=== PATIENT | male | born 1960 | race Caucasian/White ===

== ENCOUNTER 2024-02-10 08:55 | Day surgery (SDC) | payer OTHER, SELFPAY ==
[2024-02-10] VITALS (22 sets, daily range): BP systolic 105–145; BP diastolic 55–90; BMI 39.6
[2024-02-10] MEDS: NSS 885 IV (12:11)
--- NOTE | 2024-02-10 13:32 | ITS.CL.ANGIO ---
Bolter Helper - Angioplasty
Angioplasty
Procedure Report:
LEFT HEART CATHETERIZATION
Date of Procedure: February 10, 2024
Procedures performed:
1: Coronary angiography
2: Left ventricular hemodynamic assessment
3: Percutaneous coronary intervention of the left circumflex artery with placement of a 2.5 x 22 mm [place] drug-eluting stent postdilated with a 2.75 mm diameter noncompliant balloon at high pressure
Primary Care Physician: Dr. Dong Cuevas
Primary Transition Program Manager: Myself
INDICATION: The patient is a 64-year-old man with a past medical history significant for coronary artery disease status post LAD and RCA stenting in the past, hypertension, and hyperlipidemia who presents with new angina. Nuclear perfusion imaging
suggested circumflex territory ischemia.
ACCESS: The patient was prepped and draped in usual sterile fashion. A 6 [place] sheath was placed in the right radial artery using the Seldinger over the wire technique.
HEMODYNAMIC FINDINGS (mmHg):
LV(s/d,EDP): 121/9, 14
Ao(s/d,m): 121/75, 96
ANGIOGRAPHIC FINDINGS:
Single-plane Left Ventriculography in [place] Projection: Not done.
Coronary Angiography:
Dominance: Right
Left Main: Normal
Left Anterior Descending: The left anterior descending artery is a medium caliber vessel that has a widely patent previously placed overlapping proximal and mid LAD stent with minimal in-stent restenosis. There are 3 jailed small to medium caliber
diagonal branches which are patent with normal flow.
Left Circumflex: The left circumflex is a medium caliber nondominant system that gives rise to 1 major obtuse marginal branch. The proximal circumflex has diffuse calcific smooth 30 to 40% disease. The first obtuse marginal branch has a focal the
proximal circumflex has a diffuse calcific smooth 30 to 40% stenosis. OM1 has a proximal 80 to 90% lesion followed by a smooth 50% stenosis. The distal vessel has GIA-3 flow. The circumflex terminates in a smaller distal OM that is widely patent.
Right Coronary: The right coronary artery is a large-caliber dominant vessel that gives rise to a medium caliber posterior descending artery and larger posterior left ventricular branch system. The previously placed stent is widely patent with no
significant in-stent restenosis. There is a focal small aneurysmal area noted in the midportion of the stent which was not present on the index procedure in 2016. All vessels have GIA-3 flow.
Percutaneous Coronary Intervention (PCI): In light of his clinical presentation and the above angiographic findings, I elected proceed with a PCI of the circumflex lesion. The patient was pretreated with aspirin and unfractionated heparin was
given. A loading dose of clopidogrel 600 mg was given at the end the case on the table. A 6 [place] XB 4.0 guiding catheter was used to engage the left main. A Hi-Torque floppy wire was successfully advanced across the lesion and into the distal
OM. A 6 [place] Guideliner was required for backup support to deliver a 2.0 x 15 mm balloon. The lesion was predilated up to 20 juani. There was some concern for incomplete predilation so the calcific focal proximal lesion was predilated with a 2.5
mm diameter noncompliant balloon at 20 juani with complete balloon profiling. A 2.5 x 22 mm [place] stent was deployed at the lesion. The stent was postdilated with a 2.75 mm diameter noncompliant balloon at 12 juani distally and 18 juani proximally.
FINAL RESULT: 0% in-stent residual stenosis with an excellent angiographic result and GIA-3 flow in all vessels.
Fluoroscopy Time (min): 13
Radiation Dose (mGy): 1416
DAP (Gy.cm2): 96
Closure device: None. A TR band was applied for hemostasis at the right wrist.
Complications: None.
ASSESSMENT:
1: Successful PCI of the culprit circumflex with placement of a drug-eluting stent as described above.
2: Widely patent previously placed RCA and LAD stents.
3: Normal left ventricular filling pressures.
CONCLUSIONS and RECOMMENDATIONS:
1: Routine post drug-eluting stent medical therapy and monitoring. Dual antiplatelet therapy with aspirin and Plavix for a year with aspirin 81 mg daily uninterrupted indefinitely.
Leland Blood M.D.
Copy to: Dr. Dong Cuevas
[2024-02-10] MEDS: LIPITOR 80 MG PO (17:06)
--- NOTE | 2024-02-10 17:42 | PTCARENOTE ---
Pt received post cath at 1620. Right rad band intact with good radial pulse and no hematoma or bleeding. Pt oob to the chair, gait steady. No c/o offered.
[2024-02-10] MEDS: COREG 25 MG PO (20:08)
--- NOTE | 2024-02-10 20:34 | PTCARENOTE ---
Assumed pt care. Walking rounds completed with previous RN. Pt OOB in chair at time of assessment. AAO x 4, denies pain/discomfort/C/LIZARRAGA. Pt on RA, posterior BS clear/equal. NSR on monitor, HR 60's, heart tones normal, distal pulses palpable, trace
LE edema present B/L. Pt up ad natali, tolerating activity. BS audible, ate 100% of dinner. Voiding without issue. R radial cath site CDI, pulse palpable, denies numbness/tingling. PIV x 1 present & patent. See MAR.
[2024-02-11 01:27] VITALS: BP 123/74
[2024-02-11 04:39] VITALS: BP 117/75
[2024-02-11 07:59] VITALS: BP 126/60
[2024-02-11] MEDS: PLAVIX 75 MG PO (08:08)
[2024-02-11] MEDS: ASPIR LOW (ENTERIC COATED) 81 MG PO (08:08)
[2024-02-11] MEDS: ZESTRIL 20 MG PO (08:08)
[2024-02-11] MEDS: COREG 25 MG PO (08:09)
[2024-02-11] MEDS: ORETIC 12.5 MG PO (08:09)
--- NOTE | 2024-02-11 08:50 | CM ---
Reviewed chart. Met with Mr. Mehta to review discharge plans. He states prior to admission he resdies with her spouse and son in a two story home with three steps to enter. He states he has a full flight of steps to get to bedroom/full bathroom.
He states he has a powder room on the first floor. He states prior to admission he was independent with ambulation and adls. He states he does not have any DME in the home. He states he has a prescription plan and uses [facility]. The
discharge plan is to return home with his spouse and son when medically stable.
--- NOTE | 2024-02-11 10:02 | W.PN.CARDCBS ---
Addendum entered and electronically signed by Nile Carvajal MD 02/11/24 16:31:
I saw and examined the patient.
The Paint Department Supervisor's note was reviewed and I agree with the note.
Comment:
GEN: No distress, awake, Ox3
HEENT: supple, anicteric, mmm
LUNGS: CTA, no wheezes/rales
CV: Reg, S1/S2, 1/6 syst LSB, no gallop
ABD: soft, BS+, NT/ND
EXT: No edema
NEURO: Gross non-focal
SKIN: No rash
Plan:
Overall doing well status post left circumflex PCI.
Continue aspirin and Plavix.
Okay for discharge.
F/U [facility].
Original Note:
Today's Communication / Plan
-
post PCI LCx
stable for d/c home today
Impression / Plan
-
Primary Care Physician: Dr. Dong Cuevas
Primary Anode Machine Operator: Kunal Blood MD
64-year-old man with a past medical history significant for coronary artery disease status post LAD and RCA stenting in the past, hypertension, and hyperlipidemia who presents with new angina. Nuclear perfusion imaging suggested circumflex
territory ischemia.
Impression:
CAD prior PCI RCA/LAD 2015
s/p PCI LCx x 1 MARIA LUISA 02/10/24
VT arrest post PCI 2015
HTN
HLD
PVD
chronic LE edema
RBBB
h/o hernia repair
02/10/24 [facility]:
1: Coronary angiography
2: Left ventricular hemodynamic assessment
3: Percutaneous coronary intervention of the left circumflex artery with placement of a 2.5 x 22 mm [place] drug-eluting stent postdilated with a 2.75 mm diameter noncompliant balloon at high pressure
Plan:
post PCI LCx
denies cp
Rad site stable
tele SR 1deg AVB, RBBB
DAPT ASA/Plavix
continue carvedilol, atorvastatin, lisinopril
cardiac rehab c/s
f/u [facility] 2-4 weeks
home today
Progress Note - Anode Machine Operator
Subjective
Date of Service: February 11, 2024
denies cp, sob
Objective
Vital Signs and I&O:
Vital Signs
Temp Pulse Resp BP Pulse Ox
98.6 F 88 20 126/60 95
02/11/24 07:56 02/11/24 09:00 02/11/24 07:56 02/11/24 07:59 02/11/24 09:56
Vital Signs
Temp Pulse Resp BP Pulse Ox
98.6 F 88 20 126/60 95
02/11/24 07:56 02/11/24 09:00 02/11/24 07:56 02/11/24 07:59 02/11/24 09:56
Intake & Output
02/09/24 02/10/24 02/11/24 02/12/24
06:59 06:59 06:59 06:59
Intake Total 1130 / 1130
Balance 1130 / 1130
Physical Exam
Physical Exam
NAD< AOX3
S1, S2, RRR
CTAB, non labored, no wheeze
SNTND bsx4
R rad site c/d/i no HT, good pulse
--- NOTE | 2024-02-11 10:59 | PTCARENOTE ---
IV and tele removed. Discharge instructions reviewed w/ pt and spouse. Verbalizes understanding. Escorted per staff assist via wheelchair. Discharged to home.
--- NOTE | 2024-02-11 11:43 | W.DS.TRANS ---
DC Summary - Professional Model
-
Discharge Instructions:
Discharge Diagnosis/Procedures Angioplasty with stent to Obtuse marginal artery
Diet Low Cholesterol
Driving Restrictions No driving for 24 hours
Other Services Cardiac Rehab
Instructions:
Stand-Alone Forms: DC Instructions- Cath/EP Lab
Changes to Home Medications: Yes
Discharge Medications:
DC Medications w/original date entered in [facility]
aspirin 81 mg tablet,delayed release 81 mg PO DAILY ##0 08/09/15
atorvastatin 80 mg tablet 80 mg PO QPM ##30 08/09/15
carvedilol 25 mg tablet 25 mg PO BID 02/10/24
clopidogrel 75 mg tablet 75 mg PO DAILY #90 tabs 02/10/24
lisinopril 20 mg-hydrochlorothiazide 12.5 mg tablet 1 tab PO DAILY 02/10/24
Home Medication Changes
new to plavix
Pending Results: No
== END 2024-02-11 11:01 | disposition home or self-care (01) ==
LOC: CATH 08:55
PROVIDERS: ATTENDING PHYSICIAN Internal Medicine Interventional Cardiology; FAMILY PHYSICIAN Family Medicine
DX: I25.119 Atherosclerotic heart disease of native coronary artery with unspecified angina pectoris (principal); E78.5 Hyperlipidemia, unspecified; I10 Essential (primary) hypertension; Z95.5 Presence of coronary angioplasty implant and graft; T82.858A Stenosis of other vascular prosthetic devices, implants and grafts, initial encounter; Y83.2 Surgical operation with anastomosis, bypass or graft as the cause of abnormal reaction of the patient, or of later complication, without mention of misadventure at the time of the procedure; Z79.02 Long term (current) use of antithrombotics/antiplatelets; Z79.82 Long term (current) use of aspirin; I45.10 Unspecified right bundle-branch block; I73.9 Peripheral vascular disease, unspecified; I47.20 Ventricular tachycardia, unspecified; T82.855A Stenosis of coronary artery stent, initial encounter; Z91.199 Patient's noncompliance with other medical treatment and regimen due to unspecified reason; I25.41 Coronary artery aneurysm
CPT/HCPCS: 85347; 93005; 93458; C1725; C1769; C1874; C1887; C1894; C9600; Q9967